=== PATIENT | female | born 1960 | race Caucasian/White ===

== ENCOUNTER 2025-02-08 12:25 | Emergency (ER) | payer BC, SELFPAY ==
[2025-02-08] VITALS (7 sets, daily range): BP systolic 122–150; BP diastolic 64–84; BMI 27.9
[2025-02-08 13:13] LABS: % Basophils 0.5 % (0-2); % Eosinophils 2.1 % (0-6); % Immature Granulocytes 0.4 % (0-0.5); % Monocytes 8.9 % (1.7-9.3); % Neutrophils 60.1 % (42.2-75.2); Absolute Eosinophils 0.1 10^3/uL (0-0.7); Absolute Lymphocytes 1.6 10^3/uL (1.2-3.4); Absolute Monocytes 0.5 10^3/uL (0.1-0.6); Absolute Neutrophils 3.4 10^3/uL (1.4-6.5); Hematocrit 36.9 % (37.0-47.0); Hemoglobin 12.2 g/dL (12.0-16.0); Mean Corp Hgb Conc. 33.1 g/dL (33.0-37.0); Mean Corpuscular Hgb 30.1 pg (27.0-31.0); Mean Corpuscular Volume 91.1 fL (81.0-99.0); Mean Platelet Volume 9.1 fL (7.4-10.4); Nucleated Red Blood Cells % 0 %; Platelet Count 281 10^3/uL (130-400); Red Blood Cell Count 4.05 10^6/uL (4.20-5.40); White Blood Cell Count 5.6 10^3/uL (4.8-10.8)
--- NOTE | 2025-02-08 13:20 | ED.GENMED ---
History of Present Illness
General
Chief Complaint: Chest Pain
Source: patient
Time Seen by Provider: 02/08/25 13:07
History of Present Illness
History of Present Illness:
64-year-old female presents to the emergency room for evaluation after having an episode of chest pain yesterday. Patient states she was sitting reading a book when she developed significant indigestion type pain in the center of her chest. It
became quite significant. She laid on the ground and after about 5 minutes it began to improve. She felt back to normal after several minutes and was able to continue with her activities for the day. She did not do any significant exertion just
some walking to her car etc. She has not had any chest pain since. She has ascended steps today without difficulty. Patient denies ever having symptoms such as this. When the discomfort was present it was in the center of her chest and did not
radiate. The discomfort was associated with some nausea. She denies associated shortness of breath or diaphoresis. She does not smoke. She does not take any prescription medications.
Phy Exam
Physical Exam
Physical Exam:
General: Awake, Alert, Oriented X3. No acute distress.
Vitals: unremarkable
Head: Atraumatic
Eyes: Pupils equal, EOMI
Throat: Airway intact, no exudates
Neck: Trachea midline
Lungs: Clear and equal b/l
Heart: Regular rate, no murmurs
Abd: Soft, Nontender, No pulsatile mass
Neuro: Nonfocal
Skin: Warm, dry, no rash
Extremities: pulses equal b/l, no edema
Scores
Heart Score for Chest Pain Patients
STEMI patient?: No
History: Slightly or Non-Suspicious
ECG: Normal
Age: >45 - <65 years
Risk Factors: 1 or 2 Risk Factors
Troponin: </= Normal Limit
Heart Score for Chest Pain Patients: 2
Heart Score Risk: 2.5% MACE over next 6 weeks
Course
Orders/Labs/Results
Orders:
Orders
02/08/25 12:26
EKG [Electrocardiogram (*1)] Urgent
Reason for Study: Chest Pain
EKG- Treatment ONCE
02/08/25 13:04
Complete Blood Count/With Diff Urgent
Comprehensive Metabolic Panel Urgent
Troponin I Urgent
02/08/25 13:20
CR Chest - 2 Views Urgent
Comment:
Reason For Exam: chest pain
Abnormal Lab Results
02/08/25
13:04
RBC 4.05 L 10^6/uL
(4.20-5.40)
Hct 36.9 L %
(37.0-47.0)
Chloride 111 H mmol/L
(98-107)
Glucose 101 H mg/dl
(70-99)
02/08/25 13:04
02/08/25 13:04
Vital Signs
Initial and Last Documented VS:
Initial Vital Signs
Temp Pulse Resp BP Pulse Ox
98.9 F 73 18 150/84 98
02/08/25 12:40 02/08/25 12:40 02/08/25 12:40 02/08/25 12:40 02/08/25 12:40
Last Documented Vital Signs
Temp Pulse Resp BP Pulse Ox
98.9 F 68 18 126/79 96
02/08/25 12:40 02/08/25 14:45 02/08/25 14:45 02/08/25 14:30 02/08/25 14:45
MDM/Problems Addressed
Differential Diagnosis Includes:
Angina, GERD, esophageal spasm, chest wall pain
MDM/Problems Addressed:
Patient presents after having an episode of chest pain yesterday. No chest pain since. EKG shows no acute ischemic changes. Troponin is negative. Patient stable for discharge and outpatient follow-up. Patient is planning to go to [place]
for a hiking tour. I explained that the negative troponin means her risk of any acute cardiac event is quite low but not 0. We recommend follow-up in the next few days with cardiology. We placed her on the chest pain hotline with [facility].
*Radiology
Radiology exam reviewed: preliminary read by ED provider (No acute abnormality on my review of the chest x-ray)
*Pulse Oximetry
SaO2: 95
Oxygen Mode of Delivery: Room air
Patient hypoxic: no
*EKG
Interpreted by ED Provider?: Yes
Heart Rate: 69
Rate: normal
Rhythm: sinus
[place]: normal axis
Interval: normal interval
QRS Pattern: normal QRS
Ischemia: no ischemia
*[employer] Specialist Interpretation
Rate: normal
Interpretation: normal
Heart Rate: 69
Rhythm: sinus
*Critical Care Note
Total Time (30-74mins, 75-104mins- exclusive of procedures): Not Applicable
ED Attending Note
-
Portions of this chart may have been created with voice recognition software.� Occasional wrong word or��sound alike� substitutions may have occurred due to the inherent limitations of voice recognition software.
Discharge Plan
Departure
Patient Disposition: Home (Routine Discharge)
Date of Disposition: 02/08/25
Time of Disposition: 14:47
Patient with high blood pressure during this ER visit?: No
Condition: Good
Discharge Problem:
Chest pain
Instructions: Chest Pain [facility] Follow Up
Prescriptions:
No Action
No Current Medications
0
Referrals:
Jun Morgan MD [Active, Cardiology]
Activity Restrictions/Additional Instructions:
Your EKG and heart enzyme here are normal. This makes it unlikely that your chest pain was related to a heart issue but we recommend follow-up with cardiology for their evaluation and further testing.
Interventions
Interventions:
*Risk Screen - Suicide Last Done: 02/08/25 12:40
*General Assessment Last Done: 02/08/25 12:40
*Neglect/Abuse Screening Last Done: 02/08/25 12:40
*ED- Fall Risk Assessment Last Done: 02/08/25 12:40
*ED COVID-19 Vaccine History Last Done: 02/08/25 12:40
*Nursing Disposition Last Done: 02/08/25 14:52
ED- Cardiac Assessment Last Done: 02/08/25 12:57
Discharge Date and Time
Discharge Date/Time: 02/08/25 14:48
Print Language: ARMENIAN
[2025-02-08 13:39] LABS: ALT (SGPT) 13 U/L (0-35); AST (SGOT) 16 U/L (14-36); Albumin 4.2 g/dl (3.5-5.0); Alkaline Phosphatase 68 U/L (38-126); Blood Urea Nitrogen 15 mg/dl (7-17); Calcium 9.2 mg/dl (8.4-10.2); Carbon Dioxide 22 mmol/L (22-30); Chloride 111 mmol/L (98-107); Estimated Creatinine Clearance 81 ml/min; Glucose 101 mg/dl (70-99); Sodium 140 mmol/L (135-145); Total Bilirubin 0.7 mg/dl (0.2-1.3); Total Protein 6.8 g/dl (6.3-8.2); eGFR > 60.00
[2025-02-08 13:46] LABS: Troponin I < 0.012 ng/ml
== END 2025-02-08 14:48 | disposition home or self-care (01) ==
LOC: EMR 12:25
PROVIDERS: Emergency Medicine; EMERGENCY PHYSICIAN Emergency Medicine; FAMILY PHYSICIAN Family Medicine
DX: R07.89 Other chest pain (principal)
CPT/HCPCS: 99283; 71046; 80053; 84484; 85025; 93005